=== PATIENT | female | born 1995 | race American Indian/Alaskan Native ===

== ENCOUNTER 2018-01-09 13:05 | Emergency (ER) | payer BC ==
[2018-01-09 13:46] VITALS: BP 140/90
[2018-01-09 14:21] LABS: HCG Qualitative,Urine Negative (Negative)
[2018-01-09 14:22] LABS: Bilirubin,Urine NEG (Negative); Blood,Urine NEG (Negative); Color,Urine Yellow (Yellow); Protein,Urine <15 mg/dL mg/dL (Negative); Urobilinogen,Urine < 2.0 mg/dL (<2.0); WBC,Urine < 1.0 /HPF (0.0-6.0)
[2018-01-09] MEDS ORDERED: TORADOL IM ONE (14:40)
[2018-01-09] MEDS ORDERED: ATIVAN IM ONE (14:41)
--- NOTE | 2018-01-09 15:10 | XRay Report ---
AP CHEST: HISTORY: chest pain AP view of the chest demonstrates a normal mediastinal and cardiac contour with clear lungs and normal bony and soft tissue structures. IMPRESSION: Unremarkable AP chest.
--- NOTE | 2018-01-09 15:14 | Emergency Department Report ---
Chief Complaint: Anxiety Stated Complaint: ANXIETY Time Seen by Provider: 01/09/18 14:12 - HPI History of Present Illness: The patient's 22-year-old female presents for evaluation of chest pain and anxiety. The patient reports 2 hours prior to arrival sudden onset of racing of the heart, jitteriness, and chest pain. Her chest pain has been constant, tightness light, and associated with transient tachypnea. She has no shortness of breath whatsoever for the past hour. She states that she has a long- standing history of anxiety and that her symptoms are consistent with previous panic attacks. The patient has fever, trauma to the chest, syncope, hemoptysis , unilateral leg swelling, oral contraceptive use, recent immobilization, history of DVT or PE, recent cancer, history of familial coagulation disorder. - Exam Vital Signs: Vital Signs 01/09/18 13:42 Temperature 98 F Pulse Rate 76 Respiratory 22 Rate Blood Pressure 140/90 O2 Sat by Pulse 100 Oximetry MSE screening note: Focused history and physical exam performed. Due to findings the following was ordered: ED Disposition for MSE Condition: Stable Referrals: PRIMARY CARE, [Primary Care Provider] - 3-5 Days
--- NOTE | 2018-01-09 16:09 | Emergency Department Report ---
ED Anxiety HPI - General Chief Complaint: Anxiety Stated Complaint: ANXIETY Time Seen by Provider: 01/09/18 14:12 Source: patient, EMS Mode of arrival: Ambulatory - History of Present Illness Initial Comments: The patient's 22-year-old female presents for evaluation of chest pain and anxiety. The patient reports 2 hours prior to arrival sudden onset of racing of the heart, jitteriness, and chest pain. Her chest pain has been constant, tightness light, and associated with transient tachypnea. She has no shortness of breath whatsoever for the past hour. She states that she has a long- standing history of anxiety and that her symptoms are consistent with previous panic attacks. The patient denies any fever, trauma to the chest, syncope, hemoptysis, unilateral leg swelling, oral contraceptive use, recent immobilization, history of DVT or PE, recent cancer, history of familial coagulation disorder. MD Complaint: anxiety - Related Data Home Medications: Previous Rx's Medication Instructions Recorded Last Taken Type Ibuprofen 800 mg PO Q8H PRN #15 tablet 01/09/18 Unknown Rx LORazepam [Ativan] 0.5 mg PO BID PRN #6 tablet 01/09/18 Unknown Rx Allergies/Adverse Reactions: Allergies Allergy/AdvReac Type Severity Reaction Status Date / Time No Known Allergies Allergy Unverified 01/09/18 13:42 ED Review of Systems ROS: Stated complaint: ANXIETY Other details as noted in HPI ED Past Medical Hx - Past Medical History Previous Medical History?: No - Surgical History Past Surgical History?: No - Social History Smoking Status: Current Every Day Smoker - Medications Home Medications: Home Medications Medication Instructions Recorded Confirmed Last Taken Type Ibuprofen 800 mg PO Q8H PRN #15 tablet 01/09/18 Unknown Rx LORazepam [Ativan] 0.5 mg PO BID PRN #6 tablet 01/09/18 Unknown Rx ED Physical Exam - General Limitations: No Limitations ED Course Vital Signs 01/09/18 13:42 Temperature 98 F Pulse Rate 76 Respiratory 22 Rate Blood Pressure 140/90 O2 Sat by Pulse 100 Oximetry ED Medical Decision Making - Radiology Data Radiology results: report reviewed Chest x-ray unremarkable - Medical Decision Making Patient has been evaluated by this provider as well as Dr. Allen. I discussed the patient that she needs to follow-up with a primary care provider or mental health provider. We will give patient ibuprofen. Patient verbalized understanding. Critical care attestation.: If time is entered above; I have spent that time in minutes in the direct care of this critically ill patient, excluding procedure time. ED Disposition Clinical Impression: Anxiety Disposition: DC-01 TO HOME OR SELFCARE Is pt being admited?: No Does the pt Need Aspirin: No Condition: Stable Instructions: Anxiety (ED) Additional Instructions: Discussed with patient she needs to follow up with mental health for further evaluation of anxiety. Also discussed the patient will place on ibuprofen for the atypical chest pain is reproducible. Discussed the patient that she needs to be using proper mechanism to lift heavy objects. 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 Patient verbalized understanding. Prescriptions: Ibuprofen 800 mg PO Q8H PRN #15 tablet PRN Reason: pain LORazepam [Ativan] 0.5 mg PO BID PRN #6 tablet PRN Reason: Anxiety Referrals: PRIMARY CARE, [Primary Care Provider] - 3-5 Days Forms: Work/School Release Form(ED)
== END 2018-01-09 16:34 | disposition home or self-care (01) ==
LOC: ED 13:05
DX: F41.9 Anxiety disorder, unspecified (principal); F17.200 Nicotine dependence, unspecified, uncomplicated
CPT/HCPCS: 71045; 81001; 81025; 96372; 99284; J1885; J2060